=== PATIENT | male | born 1945 | race Caucasian/White ===

== ENCOUNTER 2020-08-18 13:51 | Observation (INO) ==
[2020-08-18 16:05] LABS: Hematocrit 27.5 % (37.5-50.1); Hemoglobin 8.5 g/dL (12.9-16.9); Mean Corpuscular HGB Conc 30.9 g/dL (31.6-35.5); Mean Corpuscular Hemoglobin 27.5 pg (28.0-33.3); Mean Platelet Volume 9.6 fL (9.4-12.4); Platelet Count 159 K/mcL (140-400); Red Blood Count 3.09 M/mcL (4.19-5.50); Red Cell Distribution Width 17.2 % (11.5-14.5); White Blood Count 4.7 K/mcL (4.3-11.1)
[2020-08-18 16:12] LABS: INR 1.1; Prothrombin Time 12.5 Seconds (9.4-12.1)
[2020-08-18 16:26] LABS: Alanine Aminotransferase 24 Units/L (7-52); Albumin 3.5 g/dL (3.5-5.7); Albumin/Globulin Ratio 1.5 (1.1-2.2); Alkaline Phosphatase 43 Units/L (34-104); Aspartate Amino Transferase 22 Units/L (13-39); BUN/Creatinine Ratio 15 (6-26); Bilirubin,Direct 0.1 mg/dL (0.0-0.2); Bilirubin,Indirect 0.3 mg/dL (0.0-1.0); Bilirubin,Total 0.4 mg/dL (0.3-1.0); Blood Urea Nitrogen 14 mg/dL (8-23); Calcium 8.9 mg/dL (8.6-10.3); Carbon Dioxide 28 mEq/L (23-29); Chloride 98 mEq/L (98-107); Globulin 2.3 g/dL (2.4-3.5); Glucose 109 mg/dL (70-105); Osmolality,Calculated 275 (280-300); Potassium 4.2 mEq/L (3.5-5.1); Sodium 132 mEq/L (136-145); Total Protein 5.8 g/dL (6.4-8.9); Troponin I < 0.03 ng/mL (< 0.04); eGFR For African Americans > 60 (> 60); eGFR For Non-African Americans > 60 (> 60)
[2020-08-18] MEDS ORDERED: Perflutren Lipid Microsphere 1.3 ML in 0.9 % Sodium Chloride 8.7 ML IVP PRN (17:58)
[2020-08-18] MEDS ORDERED: Ondansetron 4 MG/2 ML VIAL IVP PRN (18:07)
[2020-08-18] MEDS ORDERED: Acetaminophen 325 MG TABLET PO PRN (18:07)
[2020-08-18] MEDS ORDERED: Melatonin 3 MG TABLET PO PRN (18:07)
[2020-08-18] MEDS ORDERED: Ipratropium/Albuterol Neb 3 ML IH PRN (18:21)
[2020-08-18 18:49] LABS: Immature Reticulocyte % 14.4 % (11.0-38.0); Retculocyte # 0.02 M/mcL (0.05-0.10); Reticulocyte % 0.5 % (1.6-2.8)
[2020-08-18 18:57] LABS: % Iron Saturation 11 % (20-55); Iron 20 mcg/dL (65-175); Transferrin 136 mg/dL (203-362)
[2020-08-18 19:16] LABS: Ferritin 244 ng/mL (20-250)
[2020-08-18 19:21] LABS: Folate 11.6 ng/mL (3.0-16.0)
[2020-08-18] MEDS: Ipratropium/Albuterol Neb 3 ML IH SCH ×2 (19:50→22:45)
[2020-08-18] MEDS: Budesonide/Formoterol 160/4.5 1 PUFF INH IH SCH (22:45)
[2020-08-19] MEDS: Ipratropium/Albuterol Neb 3 ML IH SCH ×4 (04:12→22:39)
[2020-08-19 05:47] LABS: Hematocrit 25.4 % (37.5-50.1); Hemoglobin 7.9 g/dL (12.9-16.9); Mean Corpuscular HGB Conc 31.1 g/dL (31.6-35.5); Mean Corpuscular Volume 90.1 fL (83.0-100.0); Mean Platelet Volume 9.2 fL (9.4-12.4); Platelet Count 125 K/mcL (140-400); Red Blood Count 2.82 M/mcL (4.19-5.50); Red Cell Distribution Width 17.3 % (11.5-14.5); White Blood Count 3.3 K/mcL (4.3-11.1)
[2020-08-19] MEDS: *HR* Enoxaparin 40 MG/0.4 ML SYRINGE SQ SCH (06:06)
[2020-08-19 06:11] LABS: BUN/Creatinine Ratio 14 (6-26); Blood Urea Nitrogen 14 mg/dL (8-23); Calcium 8.5 mg/dL (8.6-10.3); Carbon Dioxide 29 mEq/L (23-29); Chloride 99 mEq/L (98-107); Glucose 98 mg/dL (70-105); Magnesium 1.8 mg/dL (1.6-2.6); Osmolality,Calculated 276 (280-300); Phosphorous 2.8 mg/dL (2.7-4.5); Potassium 3.9 mEq/L (3.5-5.1); Sodium 133 mEq/L (136-145); eGFR For African Americans > 60 (> 60); eGFR For Non-African Americans > 60 (> 60)
[2020-08-19] MEDS ORDERED: Metoprolol XL (24 HR) Succ 25 MG TAB.ER.24H PO SCH (09:00)
[2020-08-19] MEDS: Aspirin 81 MG TAB.CHEW PO SCH (09:19)
[2020-08-19] MEDS: Finasteride 5 MG TABLET PO SCH (09:19)
[2020-08-19] MEDS ORDERED: Benzonatate 100 MG CAPSULE PO PRN (10:33)
[2020-08-19] MEDS: Budesonide/Formoterol 160/4.5 1 PUFF INH IH SCH ×2 (11:21→22:40)
[2020-08-20 01:55] LABS: Hematocrit 23.7 % (37.5-50.1); Hemoglobin 7.5 g/dL (12.9-16.9)
[2020-08-20 02:15] LABS: BUN/Creatinine Ratio 17 (6-26); Blood Urea Nitrogen 17 mg/dL (8-23); Calcium 8.1 mg/dL (8.6-10.3); Carbon Dioxide 27 mEq/L (23-29); Chloride 96 mEq/L (98-107); Glucose 94 mg/dL (70-105); Magnesium 1.7 mg/dL (1.6-2.6); Osmolality,Calculated 271 (280-300); Phosphorous 3.1 mg/dL (2.7-4.5); Sodium 130 mEq/L (136-145); eGFR For African Americans > 60 (> 60); eGFR For Non-African Americans > 60 (> 60)
[2020-08-20] MEDS: Ipratropium/Albuterol Neb 3 ML IH SCH ×4 (03:43→22:43)
[2020-08-20] MEDS: *HR* Enoxaparin 40 MG/0.4 ML SYRINGE SQ SCH (06:00)
[2020-08-20] MEDS: Aspirin 81 MG TAB.CHEW PO SCH (07:16)
[2020-08-20] MEDS: Folic Acid 1 MG TABLET PO SCH (07:16)
[2020-08-20] MEDS: Pyridoxine (B-6) 50 MG TABLET PO SCH (07:16)
[2020-08-20] MEDS: Loratadine 10 MG TABLET PO SCH (07:16)
[2020-08-20] MEDS: predniSONE 5 MG TABLET PO SCH (07:16)
[2020-08-20] MEDS: Finasteride 5 MG TABLET PO SCH (07:16)
[2020-08-20] MEDS ORDERED: 0.9 % Sodium Chloride 250 ML ONE (09:39)
[2020-08-20] MEDS: Budesonide/Formoterol 160/4.5 1 PUFF INH IH SCH ×2 (10:46→22:43)
[2020-08-20 15:11] LABS: Hematocrit 26.1 % (37.5-50.1); Hemoglobin 8.3 g/dL (12.9-16.9)
[2020-08-21 02:07] LABS: Hematocrit 26.8 % (37.5-50.1); Hemoglobin 8.6 g/dL (12.9-16.9)
[2020-08-21] MEDS: Ipratropium/Albuterol Neb 3 ML IH SCH ×2 (04:14→11:22)
[2020-08-21] MEDS: *HR* Enoxaparin 40 MG/0.4 ML SYRINGE SQ SCH (05:29)
[2020-08-21 07:17] VITALS: BP 120/70
[2020-08-21] MEDS: Aspirin 81 MG TAB.CHEW PO SCH (09:39)
[2020-08-21] MEDS: predniSONE 5 MG TABLET PO SCH (09:40)
[2020-08-21] MEDS: Pyridoxine (B-6) 50 MG TABLET PO SCH (09:40)
[2020-08-21] MEDS: Folic Acid 1 MG TABLET PO SCH (09:40)
[2020-08-21] MEDS: Loratadine 10 MG TABLET PO SCH (09:40)
[2020-08-21] MEDS: Finasteride 5 MG TABLET PO SCH (09:40)
[2020-08-21] MEDS: Budesonide/Formoterol 160/4.5 1 PUFF INH IH SCH (11:22)
== END 2020-08-21 11:29 | disposition home health service (06) ==
LOC: 3ANU → SUATTDRO 15:12
PROVIDERS: ADMIT Internal Medicine; ATTEND Family Medicine